=== PATIENT | male | born 1960 | race Caucasian/White ===

== ENCOUNTER 2016-09-30 18:31 | Emergency (ER) | payer OTHER, MEDICAID ==
[2016-09-30 18:36] VITALS: BP 136/93; PULSE 88; RESP 18; TEMP 99; O2SAT 97
--- NOTE | 2016-09-30 18:44 | EDPHY ---
H & P Stated Complaint: URI w/productive cough since ;wants to get checked for PNA Time Seen by Provider: 09/30/16 18:43 HPI/ROS: CHIEF COMPLAINT: Productive cough HISTORY OF PRESENT ILLNESS: The patient presents to the ED complaining of a worsening productive cough since Friday. He reports subjective chills but denies fever. The patient does report daily cigarette use. The patient denies any significant comorbidities. He does have a history of gout. He has remote history of a right hip replacement. The patient denies any abdominal pain, vomiting or diarrhea. The patient denies any flu-like illness. REVIEW OF SYSTEMS: A comprehensive 10 point review of systems is otherwise negative aside from elements mentioned in the history of present illness. Source: Patient Exam Limitations: No limitations - Personal History Current Tetanus Diphtheria and Acellular Pertussis (TDAP): Yes - Medical/Surgical History Hx Asthma: No Hx Chronic Respiratory Disease: No Hx Diabetes: No Hx Cardiac Disease: No Hx Renal Disease: No Hx Cirrhosis: No Hx Alcoholism: No Hx HIV/AIDS: No Hx Splenectomy or Spleen Trauma: No Other PMH: GOUT - Social History Smoking Status: Current every day smoker - Physical Exam Exam: General Appearance: Alert, no distress Eyes: Pupils equal and round no pallor or injection ENT, Mouth: Mucous membranes moist Respiratory: Rhonchorous breath sounds noted bilaterally Cardiovascular: Regular rate and rhythm Gastrointestinal: Abdomen is soft and nontender, no masses, bowel sounds normal Neurological: A&O, normal motor function, normal sensory exam, normal cranial nerves Skin: Warm and dry, no rashes Musculoskeletal: Neck is supple nontender Extremities: symmetrical, full range of motion Constitutional: Initial Vital Signs Temperature (C) 37.2 C 09/30/16 18:32 Heart Rate 88 09/30/16 18:32 Respiratory Rate 18 09/30/16 18:32 Blood Pressure 136/93 H 09/30/16 18:32 O2 Sat (%) 97 09/30/16 18:32 O2 Delivery Mode Room Air Allergies/Adverse Reactions: No Known Allergies Allergy (Unverified 09/30/16 18:32) Home Medications: Medication Instructions Recorded Albuterol [Ventolin Hfa Inhaler] 2 puffs IH QID PRN #1 mdi 09/30/16 Albuterol [Ventolin Hfa Inhaler] 2 puffs IH QID PRN #1 mdi 09/30/16 Allopurinol [Allopurinol 100 MG 09/30/16 (*)] Benzonatate [Tessalon Pearles (RX)] 100 mg PO BID PRN #20 cap 09/30/16 Medical Decision Making ED Course/Re-evaluation: The patient presents to the ED with a likely bronchitis. Because the patient smokes he will be treated with doxycycline and given a prescription for an albuterol inhaler. The patient has no evidence of a dense infiltrate noted on his chest x-ray. The patient will be given a prescription for Tessalon Perles. He is given customary aftercare instructions and return precautions. Differential Diagnosis: Differential diagnosis considered includes asthma, bronchitis, pneumonia Departure - Departure Disposition: Home, Routine, Self-Care Clinical Impression: Acute bronchitis Condition: Good Instructions: Acute Bronchitis (ED) Additional Instructions: 1. Please return to the emergency department for markedly worsening symptoms or other concerns. 2. Please use albuterol inhaler up to every 4 hours as needed. 3. Please take antibiotics as directed. 4. Please use Tessalon Perles as needed for cough. Referrals: Cristobal Kellogg MD [[facility] Primary Care Provider] - As per Instructions
[2016-09-30] MEDS ORDERED: ALBUTEROL INH PREPACK MDI TAKEHOME ONE ×2 (19:05→19:18)
[2016-09-30] MEDS ORDERED: BENZONATATE 100 MG CAP PO ONE ×2 (19:05→19:18)
== END 2016-09-30 19:20 | disposition home or self-care (01) ==
DX: J20.9 Acute bronchitis, unspecified (principal); F17.200 Nicotine dependence, unspecified, uncomplicated

== ENCOUNTER 2018-06-09 08:20 | Inpatient (IN) | payer MEDICAID, OTHER ==
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
[2018-06-09] MEDS ORDERED: fentaNYL 100 MCG/2 ML INJ ONE (08:57)
[2018-06-09 09:05] LABS: PLATELET COUNT 171 10^3/uL (150-400)
[2018-06-09 09:22] LABS: INR 1.17 (0.83-1.16); PROTIME(PATIENT) 15.1 SEC (12.0-15.0)
[2018-06-09] MEDS ORDERED: KETAMINE 500 MG/10 ML VIAL IVP ONE ×3 (09:25→09:27)
[2018-06-09] MEDS ORDERED: fentaNYL 100 MCG/2 ML INJ IVP ONE (09:28)
[2018-06-09] MEDS ORDERED: ONDANSETRON 4 MG/2 ML VIAL IVP ONE (09:44)
[2018-06-09] MEDS ORDERED: TDAP ADULT 0.5 ML INJ (BOOSTRIX) IM ONE (09:44)
[2018-06-09] MEDS ORDERED: ONDANSETRON 4 MG/2 ML VIAL ONE (09:44)
[2018-06-09] MEDS: LR 1,000 ML IV SCH (10:27)
[2018-06-09] MEDS: ONDANSETRON 4 MG/2 ML VIAL IVP PRN ×2 (10:37→20:39)
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
[2018-06-09 16:30] LABS: PLATELET COUNT 211 10^3/uL (150-400)
[2018-06-09] MEDS: HYDROCODONE/APAP 5/325 TAB PO PRN ×2 (17:53→21:59)
[2018-06-10] MEDS: LR 1,000 ML IV SCH (03:09)
[2018-06-10 05:18] LABS: PLATELET COUNT 180 10^3/uL (150-400)
[2018-06-10] MEDS ORDERED: LR 1,000 ML IV SCH (07:00)
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
--- NOTE | 2018-06-10 12:18 | ASMTCMCOM ---
CM Note CM Note Notes: CM discussed case with pt access, able to change contact information in EMR. Detectives report pt's mother is independent and fincially able to hire help if needed. [employer] met with pt. He does not qualify for medicaid. Pt continues to progress medically. CM to follow. Plan: TBD (needs CAGE/ETOH resources) Date Signed: 06/10/2018 12:17 PM Electronically Signed By:HANNA Chapin
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
[2018-06-10] MEDS: HYDROCODONE/APAP 5/325 TAB PO PRN (15:32)
[2018-06-10] MEDS: KETOROLAC 15 MG/1 ML SDV IVP PRN (21:43)
[2018-06-10] MEDS: LORazepam 1 MG TAB PO PRN (21:44)
[2018-06-11] MEDS: KETOROLAC 15 MG/1 ML SDV IVP PRN ×2 (06:00→14:15)
[2018-06-11 06:15] LABS: PLATELET COUNT 155 10^3/uL (150-400)
[2018-06-11] MEDS: ALLOPURINOL 300 MG TAB PO SCH (09:12)
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
[2018-06-11] MEDS: HYDROCODONE/APAP 5/325 TAB PO PRN ×2 (14:17→23:10)
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
[2018-06-11] MEDS: LORazepam 1 MG TAB PO PRN (23:12)
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
--- NOTE | 2018-06-12 14:51 | ASMTCAGE ---
CAGE Additional Comments Pt declines CAGE Date Signed: 06/12/2018 02:51 PM Electronically Signed By:LOW Mcginnis
--- NOTE | 2018-06-12 14:53 | ASMTCMCOM ---
CM Note CM Note Notes: Attempted to complete pt CAGE screening, pt declines answering the questions stating he is "an adult who works hard and has a couple of beers a night," he declines ETOH resources. No CM d/c needs identified. Pt will d/c independent. Date Signed: 06/12/2018 02:53 PM Electronically Signed By:LOW Mcginnis
[2018-06-12] MEDS: ALLOPURINOL 300 MG TAB PO SCH (16:38)
[2018-06-12] MEDS: HYDROCODONE/APAP 5/325 TAB PO PRN ×2 (18:01→19:23)
[2018-06-12] MEDS: LORazepam 1 MG TAB PO PRN (21:34)
[2018-06-13] MEDS: HYDROCODONE/APAP 5/325 TAB PO PRN ×2 (05:01→16:48)
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
[2018-06-13] MEDS: ALLOPURINOL 300 MG TAB PO SCH (09:42)
[2018-06-13] MEDS: LORazepam 1 MG TAB PO PRN ×2 (17:43→21:49)
[2018-06-14] MEDS: HYDROCODONE/APAP 5/325 TAB PO PRN ×3 (05:09→22:24)
[2018-06-14] MEDS: ALLOPURINOL 300 MG TAB PO SCH (10:56)
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
[2018-06-14] MEDS ORDERED: IOHEXOL 300 mgI/ML (OMNIPAQUE) 150 ML BTL IV ONE (15:26)
[2018-06-14] MEDS: KETOROLAC 15 MG/1 ML SDV IVP PRN (16:16)
[2018-06-15] MEDS: HYDROCODONE/APAP 5/325 TAB PO PRN ×3 (08:11→19:03)
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
[2018-06-15] MEDS: ALLOPURINOL 300 MG TAB PO SCH ×2 (11:02→13:22)
--- NOTE | 2018-06-15 14:05 | ASMTCMCOM ---
CM Note CM Note Notes: Pt d/c plan remains home independent. CM available for changes/needs. Date Signed: 06/15/2018 02:05 PM Electronically Signed By:LOW Mcginnis
[2018-06-15] MEDS: LORazepam 1 MG TAB PO PRN (21:52)
[2018-06-16] MEDS: ALLOPURINOL 300 MG TAB PO SCH (08:10)
[2018-06-16] MEDS: HYDROCODONE/APAP 5/325 TAB PO PRN ×3 (08:10→21:21)
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
[2018-06-16] MEDS: LORazepam 1 MG TAB PO PRN (20:15)
[2018-06-17] MEDS: HYDROCODONE/APAP 5/325 TAB PO PRN ×2 (06:10→21:15)
[2018-06-17] MEDS: LORazepam 1 MG TAB PO PRN (06:10)
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
[2018-06-17] MEDS: ALLOPURINOL 300 MG TAB PO SCH (12:06)
[2018-06-18] MEDS: ALLOPURINOL 300 MG TAB PO SCH (10:24)
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
--- NOTE | 2018-06-18 15:52 | ASMTCMCOM ---
CM Note CM Note Notes: CM reviewed pts chart. Pt does not have any d/c needs. CM available for changes. Plan: Independent Date Signed: 06/18/2018 03:51 PM Electronically Signed By:HANNA Chen
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
[2018-06-18 17:58] VITALS: BP 127/89
== END 2018-06-18 18:36 | disposition home or self-care (01) | DRG 200 ==
LOC: EDUNIT# → F2N 10:13 → F3N 06-11 13:59 → F3E 06-17 11:08
PROVIDERS: ADMIT Surgery; ATTEND Surgery
PROC: 0W9B30Z Drainage of Left Pleural Cavity with Drainage Device, Percutaneous Approach (ICD-10-PCS; principal; 2018-06-09)
DX: S27.2XXA Traumatic hemopneumothorax, initial encounter (principal); S21.112A Laceration without foreign body of left front wall of thorax without penetration into thoracic cavity, initial encounter; X99.9XXA Assault by unspecified sharp object, initial encounter; M10.9 Gout, unspecified; Z72.0 Tobacco use
CPT/HCPCS: 82435-PO; 82565-PO; 82947-PO; 84132-PO; 84295-PO; 84520-PO; 85014-ER; 92526-GN; 92610-GN; 96374; 97116-GP; 97161-GP; 97166-GO; 97530-GO; 97535-GO; G0480; J0690; J1885; J2270; J2405; J3010; Q9967